=== PATIENT | female | born 1960 | race Hispanic/Latino ===

== ENCOUNTER → 2018-04-04 | Outpatient (CLI) | payer OTHER ==
[~2018-04-04] MED LIST: OMEPRAZOLE40 MG PO
--- NOTE | 2018-04-08 08:58 | Diagnostic Imaging Report ---
#[id number] - [id number] #BILATERAL DIGITAL SCREENING MAMMOGRAM WITH CAD: 04/04/2018 CLINICAL: Routine screening. Comparison is made to exams dated: 02/01/2015 mammogram - [facility] and 10/02/2013 mammogram - [facility]. Current study contains 4 films. The tissue of both breasts is heterogeneously dense. This may lower the sensitivity of mammography. Current study was also evaluated with a Computer Aided Detection (CAD) system. There is a benign calcification in the right breast. No significant masses, calcifications, or other findings are seen in either breast. There has been no significant interval change. IMPRESSION: BENIGN There is no mammographic evidence of malignancy. A 1 year screening mammogram is recommended. The patient will be notified by letter of the results. Mayo zayas/windy:04/07/2018 10:33:33 Diffusion Operator: Gemini ABEL(Jorge)(M), [facility] letter sent: Compared to Prior B9 Mammogram BI-RADS: 2 Benign
== END ==
LOC: MAMMO 08:18
PROVIDERS: ATTEND Internal Medicine
DX: Z12.31 Encounter for screening mammogram for malignant neoplasm of breast (principal)
CPT/HCPCS: 77067

== ENCOUNTER → 2018-07-27 | Outpatient (CLI) | payer OTHER ==
--- NOTE | 2018-07-27 09:38 | Diagnostic Imaging Report ---
PROCEDURE:ABDOMINAL ULTRASOUND COMPARISON:None. INDICATIONS:LUQ pain FINDINGS: Liver: Measures 12.8 cm. Mildly echogenic liver. No focal mass. Main portal vein: Measures 1.2 cm. Hepatopedal flow. Gallbladder: Status post cholecystectomy. Common Bile Duct: Measures 0.4 cm. No echogenic filling defect. Sonographic Cueva's sign: Negative reported sonographic Cueva's sign. Right kidney: Measures 11.4 cm. No solid or cystic mass, echogenic calculi, or hydronephrosis. Normal parenchymal echogenicity. Left kidney: Measures 11.8 cm. No solid or cystic mass, echogenic calculi, or hydronephrosis. Normal parenchymal echogenicity. Spleen: Measures 8.6 cm. Pancreas: The visualized portions of the pancreas are normal. Inferior vena cava: Normal. Aorta: Normal. Ascites: None. CONCLUSION: No sonographic abnormality demonstrated in the area of patient reported pain in the left upper quadrant. Mildly echogenic liver, which may represent fatty liver. Status post cholecystectomy. Dictated by: BEATRIZ RIOS M.D. on 07/27/2018 at 9:44 Electronically approved by: BEATRIZ RIOS M.D. on 07/27/2018 at 9:44
== END ==
LOC: US 07:45
PROVIDERS: ATTEND Internal Medicine
DX: R10.12 Left upper quadrant pain (principal)
CPT/HCPCS: 76700

== ENCOUNTER → 2020-01-15 | Outpatient (CLI) | payer OTHER ==
--- NOTE | 2020-01-15 16:01 | Diagnostic Imaging Report ---
EXAMINATION: SP LUMBAR, COMPLETE MIN 4VW, SACRUM X-RAY INDICATION: Lumbar spondylosis COMPARISON: None FINDINGS: AP, lateral and oblique images of the lumbar spine and AP and lateral images of the sacrum and coccyx were obtained. No acute osseous injury. Vertebral body heights are well-maintained. Alignment is anatomic. No spondylolysis or spondylolysis. Mild multilevel degenerative changes with minimal disc space narrowing and small osteophyte formation. Nonobstructive bowel gas pattern. No free air. Status post cholecystectomy. IMPRESSION: No acute osseous injury of the lumbar spine or sacrum. Mild multilevel degenerative changes. Signed by: Donna Eric MD on 01/15/2020 3:59 PM
== END ==
LOC: RAD 14:32
PROVIDERS: ATTEND Internal Medicine
DX: M19.012 Primary osteoarthritis, left shoulder (principal); M47.816 Spondylosis without myelopathy or radiculopathy, lumbar region
CPT/HCPCS: 72110; 72220

== ENCOUNTER → 2022-04-20 | Outpatient (CLI) | payer BC | LOC: MAMMO 07:46 | PROVIDERS: ATTEND Internal Medicine | DX: Z12.31 Encounter for screening mammogram for malignant neoplasm of breast (principal) | CPT/HCPCS: 77067 ==

== ENCOUNTER → 2022-05-21 | Outpatient (CLI) | payer BC | LOC: US 08:12 | PROVIDERS: ATTEND Internal Medicine | DX: Z12.39 Encounter for other screening for malignant neoplasm of breast (principal); N60.01 Solitary cyst of right breast; R10.10 Upper abdominal pain, unspecified | CPT/HCPCS: 76700 ==

== ENCOUNTER → 2023-04-13 | Outpatient (CLI) | payer OTHER | LOC: MAMMO 15:55 | PROVIDERS: ATTEND Internal Medicine | DX: Z12.31 Encounter for screening mammogram for malignant neoplasm of breast (principal) | CPT/HCPCS: 77067 ==

== ENCOUNTER → 2023-05-13 | Outpatient (CLI) | payer OTHER | LOC: MAMMO 08:19 | PROVIDERS: ATTEND Internal Medicine | DX: N64.89 Other specified disorders of breast (principal) ==

== ENCOUNTER → 2025-01-26 | Outpatient (REF) | payer OTHER | LOC: DX 11:07 | PROVIDERS: ATTEND Internal Medicine | DX: M85.88 Other specified disorders of bone density and structure, other site (principal) | CPT/HCPCS: 77080 ==